=== PATIENT | female | born 1940 | race Caucasian/White ===

== ENCOUNTER → 2017-03-24 | Day surgery (SDC) | payer MEDICARE ==
[~2017-03-24] VITALS: Ht 165.1 cm; Wt 74.1 kg
[~2017-03-24] MED LIST: *morphine SULFATE 8 MG/ML PERIprocedure ONLY ONE; ACETAMINOPHEN 1000 MG/100 ML VIAL IV SCH; BUPIVACAINE/EPINEPHRINE 0.5% PF 30 ML VIAL INFIL ONE; CALC1TAB12 PO; CETI10CA3 PO; CHLORHEXIDINE GLUCONATE 2 % 1 PACK (2 CLOTHS) TOPICAL PRN; COZA100T PO; DO NOT ADM ANY ANTICOAGULANT DRUGS PRN; HYDR25TA5 PO; INSULIN HUMAN REGULAR 1,000 UNITS/10 ML VIAL SQ PRN; LACTATED RINGER'S 1000 ML INJ 1,000 ML IV ONE; LACTATED RINGER'S 1000 ML IV PRN; METF500T PO; METOPROLOL TARTRATE 25 MG TAB PO PRN; MULT-65 PO; ONDANSETRON HCL 4 MG/2 ML VIAL IV PUSH ONE; PHENYLEPH/NS 1000 MCG/10 ML SYR IV ONE; POVIDONE IODINE 5% (ANTISEPSIS KIT) 4 APPLICATIONS EACH NARE PRN; PROPOFOL 200 MG/20 ML AMP IV ONE; SODIUM CHLOR 0.9% 250 ML INJ 0 ML ONE; SODIUM CHLORID 0.9% 500 ML IV PRN; TRAM50TA PO; TRIME100 PO; VANCOMYCIN 1,250 MG/NS 250 ML (for 70-84 kg) IV SCH; VANCOMYCIN HCL 1000 MG VIAL ONE; ePHEDrine/NS 25 MG/5 ML SYR IV ONE
--- NOTE | 2017-03-24 10:26 | PD.OP ---
cc: Abhay Brown MD Operative Report Date of Surgery: Mar 24, 2017 Preoperative Diagnosis: (1) Right inguinal hernia (2) Skin lesion of chest wall (3) History of squamous cell carcinoma Postoperative Diagnosis: (1) History of squamous cell carcinoma (2) Skin lesion of chest wall (3) Right inguinal hernia Procedure: Right inguinal hernia repair with mesh Wide excision of skin lesion of anterior upper chest wall Anesthesia: Gen. via LMA Surgeon: Abhay Brown Loop Drier Operator(s): Ernestine Operation and Findings: EBL: 10 cc Operative findings: The patient had a large right inguinal hernia with obliteration of the external oblique fascia. There was a suspicious lesion on the upper anterior chest wall at the site of previous excision of squamous cell carcinoma according to the patient. Procedure in detail: The patient was taken to the operating room and placed in the supine position. Gen. Anesthesia was induced. The lower abdomen and groin was prepped and draped in usual sterile fashion. Appropriate preoperative antibiotics were administered. Marcaine with epinephrine was injected in the skin and subcutaneous tissue in the right inguinal area and an inguinal incision was made. Dissection was carried out through subcutaneous tissue with electrocautery. Lucas's fascia was divided with electrocautery and immediately herniated contents were encountered.` The external oblique fascia was obliterated in this area. The hernia sac was fairly large and was from surrounding tissues with electrocautery and bluntly. There was a fairly large defect in the inguinal floor. 1 nerve was sacrificed as it was in the middle of the operative field and I was concerned it would become entrapped with mesh. A 15 x 15 cm piece of ultra Pro advanced mesh was cut to size. It was secured using interrupted 2-0 Ethibond sutures to the pubic tubercle and along the inguinal ligament past the point of the hernia defect. Simple interrupted 2-0 Ethibond sutures were used to fasten the superior aspect of the mesh medially and superiorly along the conjoined tendon and internal oblique fibers taking care to avoid nearby nerves. The lateral flaps of mesh were tucked under the external oblique fascia. There was appropriate hemostasis in the operative field. The external ring was re-created by closing the external oblique fascia with running 2-0 Vicryl suture. Lucas's was closed with interrupted 3-0 Vicryl sutures. Skin closed with subcuticular absorbable skin kaz as well as Dermabond. Attention was then turned to the skin lesion on the anterior chest wall. There was evidence of scar and a suspicious appearing skin lesion approximately 1 x 2 cm when the scar was also included. This was excised elliptically and transversely with half centimeter margins. It was excised including a portion of the underlying fatty tissue. Hemostasis was achieved. The inferior and superior flaps were partially undermined with electrocautery. Deep dermal 2-0 Vicryl sutures were placed and a running 4-0 Monocryl. Dermabond was applied. The patient tolerated procedure well and was taken to postop in stable condition. Abhay Brown MD Mar 24, 2017 10:26
[2017-03-24 12:00] VITALS: BP 127/67; PULSE 91; RESP 20; TEMP 98.7; O2SAT 95
== END | disposition home or self-care (01) ==
LOC: HSDC 06:20
PROVIDERS: ATTEND Surgery
DX: K40.90 Unilateral inguinal hernia, without obstruction or gangrene, not specified as recurrent (principal); C44.529 Squamous cell carcinoma of skin of other part of trunk; I12.9 Hypertensive chronic kidney disease with stage 1 through stage 4 chronic kidney disease, or unspecified chronic kidney disease; E11.22 Type 2 diabetes mellitus with diabetic chronic kidney disease; N18.2 Chronic kidney disease, stage 2 (mild); B18.2 Chronic viral hepatitis C; M50.30 Other cervical disc degeneration, unspecified cervical region; E78.5 Hyperlipidemia, unspecified; M51.36 Other intervertebral disc degeneration, lumbar region; M19.90 Unspecified osteoarthritis, unspecified site; M81.0 Age-related osteoporosis without current pathological fracture; M48.02 Spinal stenosis, cervical region; E55.9 Vitamin D deficiency, unspecified; G89.29 Other chronic pain; Z87.891 Personal history of nicotine dependence; Z79.84 Long term (current) use of oral hypoglycemic drugs; Z79.899 Other long term (current) drug therapy
CPT/HCPCS: 00830; 11602; 49505; 88305; C1781; J0131; J2270; J2370; J2405; J3010; J3370; J7050; J7120

== ENCOUNTER → 2017-11-03 | Outpatient (CLI) | payer MEDICARE ==
[~2017-11-03] MED LIST changes: -*morphine SULFATE 8 MG/ML PERIprocedure ONLY ONE; -ACETAMINOPHEN 1000 MG/100 ML VIAL IV SCH; -BUPIVACAINE/EPINEPHRINE 0.5% PF 30 ML VIAL INFIL ONE; -CHLORHEXIDINE GLUCONATE 2 % 1 PACK (2 CLOTHS) TOPICAL PRN; -DO NOT ADM ANY ANTICOAGULANT DRUGS PRN; -INSULIN HUMAN REGULAR 1,000 UNITS/10 ML VIAL SQ PRN; -LACTATED RINGER'S 1000 ML INJ 1,000 ML IV ONE; -LACTATED RINGER'S 1000 ML IV PRN; -METOPROLOL TARTRATE 25 MG TAB PO PRN; -ONDANSETRON HCL 4 MG/2 ML VIAL IV PUSH ONE; -PHENYLEPH/NS 1000 MCG/10 ML SYR IV ONE; -POVIDONE IODINE 5% (ANTISEPSIS KIT) 4 APPLICATIONS EACH NARE PRN; -PROPOFOL 200 MG/20 ML AMP IV ONE; -SODIUM CHLOR 0.9% 250 ML INJ 0 ML ONE; -SODIUM CHLORID 0.9% 500 ML IV PRN; -VANCOMYCIN 1,250 MG/NS 250 ML (for 70-84 kg) IV SCH; -VANCOMYCIN HCL 1000 MG VIAL ONE; -ePHEDrine/NS 25 MG/5 ML SYR IV ONE
== END ==
LOC: CLAB 07:17
PROVIDERS: ATTEND Specialist
DX: B18.2 Chronic viral hepatitis C (principal); D64.9 Anemia, unspecified; R73.09 Other abnormal glucose; Z79.899 Other long term (current) drug therapy
CPT/HCPCS: 36415; 82140